=== PATIENT | female | born 1990 | race Hispanic/Latino ===

== ENCOUNTER 2017-02-12 08:50 | Emergency (ER) | payer MEDICAID, OTHER, SELFPAY ==
[2017-02-12 09:32] LABS: #Monocytes 0.4 thou/uL (0.11-0.59); #Neutrophils 6.1 thou/uL (1.40-6.50); %Basophils 0.3 % (0.0-1.0); %Eosinophils 0.6 % (0.0-10.0); %Lymphocytes 23.4 % (21.0-51.0); %Monocytes 4.4 % (0.0-10.0); Mean Platelet Volume 7.2 fL (7.4-10.4); Red Blood Cell (RBC) Count 4.45 mill/uL (4.20-5.40); White Blood Cell (WBC) Count 8.5 thou/uL (4.8-10.8)
[2017-02-12 09:37] LABS: Bilirubin Negative (Negative); Blood, Urine Negative (Negative); Glucose, Urine (Dipstick) Negative (Negative); Ketone, Urine Negative (Negative); Nitrite Negative (Negative); Protein, Urine (Dipstick) Negative (Neg-Trace)
[2017-02-12 09:38] LABS: Bacteria/HPF 2+ HPF (None Seen); Hyaline Casts/LPF 0-3 HYALINE CAST LPF (0-3 Hyaline)
[2017-02-12 09:50] LABS: ALT (SGPT) 23 U/L (8-55); AST (SGOT) 16 U/L (5-34); Alkaline Phosphatase 60 U/L (40-150); Anion Gap 11 mmol/L (10-20); BUN (Urea Nitrogen) 6 mg/dL (7.0-18.7); Calc. Creatinine Clearance 0 mL/min (70-130); Calcium 8.9 mg/dL (7.8-10.44); Carbon Dioxide 24 mmol/L (22-29); Chloride 105 mmol/L (98-107); Estimated GFR-MDRD Greater than 90; Globulin 2.7 g/dL (2.4-3.5); Protein, Total 6.5 g/dL (6.0-8.3)
--- NOTE | 2017-02-12 11:36 | ULT ---
PELVIC ULTRASOUND: Date: 02/12/17 HISTORY: Pelvic pain. Patient gives a history of . FINDINGS: A gestational sac is identified. A yolk sac is identified. No evidence of pole. Gestational sa c measurements would indicate a 5 week/6 day gestational age. There is a right ovarian cyst measuring up to 2.0 cm. No other abnormality identified. Both ovaries are identified and appear unremarkable. Color Doppler and spectral analysis shows blood flow to both ovaries. IMPRESSION: Evidence of an intrauterine gestation. A pole is not identified at this time. Gestational sac measurements indicate a 5 week/6 day gestational age. Recommend continued follow-up. POS: JEREMIE
== END 2017-02-12 11:25 | disposition home or self-care (01) ==
LOC: ERS 08:50
DX: O23.41 Unspecified infection of urinary tract in pregnancy, first trimester (principal); O99.341 Other mental disorders complicating pregnancy, first trimester; F41.9 Anxiety disorder, unspecified; Z3A.01 Less than 8 weeks gestation of pregnancy
CPT/HCPCS: 36415; 76856; 80053; 81003; 81015; 84702; 85025; 87086

== ENCOUNTER 2017-03-23 13:05 | Emergency (ER) | payer MEDICAID, OTHER ==
[2017-03-23] MEDS ORDERED: diphenhydrAMINE 50 MG/ML VIAL ONE (13:38)
[2017-03-23] MEDS ORDERED: Metoclopramide HCl 10 MG/2 ML VIAL ONE (13:38)
[2017-03-23] MEDS ORDERED: Famotidine/PF 20 mg/2ml Vial ONE (13:38)
[2017-03-23 14:24] LABS: Bilirubin Small (Negative); Blood, Urine Small (Negative); Glucose, Urine (Dipstick) Negative (Negative); Ketone, Urine Trace mg/dL (Negative); Nitrite Negative (Negative); Protein, Urine (Dipstick) Trace mg/dL (Neg-Trace)
[2017-03-23 14:44] LABS: Bacteria/HPF 3+ HPF (None Seen); Hyaline Casts/LPF 0-3 HYALINE CAST LPF (0-3 Hyaline); Renal Epithelial 0-3 HPF (0-3)
== END 2017-03-23 16:04 | disposition home or self-care (01) ==
LOC: SCSER 13:05
DX: O21.0 Mild hyperemesis gravidarum (principal); O99.341 Other mental disorders complicating pregnancy, first trimester; F41.9 Anxiety disorder, unspecified; Z79.899 Other long term (current) drug therapy; Z3A.12 12 weeks gestation of pregnancy
CPT/HCPCS: 81003; 81015; 87086; 96361; 96365; 96375; J1200; J2765; S0028

== ENCOUNTER 2017-07-22 10:12 | Day surgery (SDC) | payer MEDICAID, OTHER ==
[2017-07-22 08:41] LABS: Bilirubin Small (Negative); Blood, Urine Large (Negative); Clarity Clear (Clear); Glucose, Urine (Dipstick) Negative (Negative); Leukocyte Negative (Negative); Nitrite Negative (Negative); Protein, Urine (Dipstick) 100 mg/dL (Neg-Trace); pH, Urine 6.5 (5.0-9.0)
[2017-07-22 08:42] LABS: Specific Gravity, Urine Greater than 1.035 (1.002-1.036)
[2017-07-22 08:50] LABS: #Basophils 0.1 thou/uL (0.0-0.2); #Eosinphils 0.1 thou/uL (0.0-0.7); #Lymphocytes 2.1 thou/uL (1.20-3.40); #Monocytes 0.6 thou/uL (0.11-0.59); #Neutrophils 7.5 thou/uL (1.40-6.50); %Basophils 0.5 % (0.0-1.0); %Eosinophils 0.6 % (0.0-10.0); %Lymphocytes 20.7 % (21.0-51.0); %Monocytes 5.4 % (0.0-10.0); %Neutrophils 72.8 % (42.0-75.0); Hemoglobin 11.8 g/dL (12.0-16.0); Mean Corpuscular HGB CONC 33.2 g/dL (32.0-36.0); Mean Corpuscular Hemoglobin 29.1 pg (27.0-31.0); Mean Corpuscular Volume 87.6 fl (81.0-99.0); Mean Platelet Volume 8.6 fL (7.4-10.4); Platelet Count 215 thou/uL (130-400); RBC Distribution Width 12.4 % (11.5-14.5); Red Blood Cell (RBC) Count 4.05 mill/uL (4.20-5.40); White Blood Cell (WBC) Count 10.2 thou/uL (4.8-10.8)
[2017-07-22 08:51] LABS: Bacteria/HPF None Seen HPF (None Seen); RBC/HPF GREATER THAN 50-TNTC HPF (0-3); Squamous Epithelial 0-3 HPF (0-3)
[2017-07-22 08:56] LABS: Anion Gap 14 mmol/L (10-20); BUN (Urea Nitrogen) 8 mg/dL (7.0-18.7); Calc. Creatinine Clearance 0 mL/min (70-130); Calcium 8.5 mg/dL (7.8-10.44); Carbon Dioxide 19 mmol/L (22-29); Chloride 109 mmol/L (98-107); Estimated GFR-MDRD Greater than 90; Glucose 99 mg/dL (70-105); Potassium 3.7 mmol/L (3.5-5.1); Sodium 138 mmol/L (136-145)
[2017-07-22] MEDS: Lactated Ringer's 1,000 ML IV SCH ×2 (10:00→11:00)
[~2017-07-22 10:12] MED LIST: Morphine 10 MG/ML VIAL ONE
[2017-07-22] MEDS ORDERED: Tamsulosin HCl 0.4 MG CAP PO SCH (10:30)
--- NOTE | 2017-07-22 10:31 | PDOC.EVN ---
Event Note - Event Note Event Note: 07/22/17 @ 1025: H&P Dictated...This is SUPPLEMENTAL TO HAVE SOMETHING IN EMR QUICKLY. In brief, 28 weeks 2 days with last delivery being a CS (we obtained the record from [facility] here and it was 26 weeks for preeclampsia...low transverse CS), now presenting with left flank pain and radiation to pelvis. Blood in urine from [facility] ED. NO evidence PTL or abruption at this time. No LOF, no VB, no CTX, good FM. Afebrile and normotensive. Interventions: Sono for ureteral jets being ordered along with renal sono, and sono for EGA. Flomax and Moso4 ordered. IVF hydrate. Details given to patient and her mother at bedside.
--- NOTE | 2017-07-22 10:45 | HP ---
TIME OF EVALUATION: 10 a.m. to 10:12 a.m. LOCATION: Labor and Delivery, Room 6 REASON FOR EVALUATION: A 28-week at gestational age of 28 weeks and 2 days with lower back pain and lower pelvic pain. PRINCIPAL BIZTALK ADMINISTRATOR PROVIDER: Dr. Ball The patient was sent here from [facility] ER for 28-week with pelvic pain. HISTORY OF PRESENT ILLNESS: In brief, this is a 26-year-old G3, P2 at 28 weeks and 2 days with a past history of a section x1 for preeclampsia. She is at 28 weeks and 2 days. She was first seen at [facility] ER for acute onset of left lower quadrant and left lower back pelvic pain. She denies leakage of fluid, no vaginal bleeding, no headache or visual changes. She denies recent trauma. She denies nausea, vomiting or gastrointestinal symptoms. She denies dysuria. She was first seen in [facility] ER where a cath UA revealed blood in the urine and a comprehensive metabolic profile was also sent which showed no overt abnormalities. She was sent here for further evaluation. REVIEW OF SYSTEMS: A complete 12 point review of systems was performed as per HPI and was significant as per the HPI. PAST MEDICAL HISTORY: Otherwise negative. MEDICATIONS: Tylenol p.r.n., and vitamins, but she has not taken vitamins recently. ALLERGIES: None. PAST MEDICAL HISTORY: Noncontributory. PAST SURGICAL HISTORY: x1. OB HISTORY: She is a G3, P2. PHYSICAL EXAMINATION: VITAL SIGNS: Temperature is 98.1, blood pressure 130/84, pulse is 79. O2 saturation on room air is 98%. GENERAL: The patient is uncomfortable, sitting up in chair, touching in her left flank area. LUNGS: Respirations are regular and not labored. ABDOMEN: Soft. Nontender with no palpable contractions. There is no costovertebral angle tenderness. CERVIX: Cervix was closed at the [facility] ER, but we are rechecking that today by nurse evaluation at bedside. monitor shows heart tones in the 140s to 150s with moderate variability. Tocodynamometer shows no contractions. INTERVENTIONS ORDERED: I have ordered an OB complete ultrasound for gestational age as well as a left renal ultrasound for possible left renal colic. I have also ordered Flomax 0.4 mg p.o. for empiric treatment of renal colic and have also ordered morphine sulfate for ureteral relaxation and pain control. ASSESSMENT: This is a 26-year-old G3, P2, female, at 28 weeks and 2 days with left flank pain radiating to the front suspicious for renal colic. Hematuria also is supportive of this working diagnosis. PLAN: 1. OB ultrasound for gestational age confirmation. 2. Left renal ultrasound to rule out pathological evidence of obstruction. 3. Flomax p.r.n. 4. Pain control p.r.n. 5. monitors. 6. No evidence of acute labor or pyelonephritis at this time. 7. IV hydration. 8. Plan discussed with the patient and her mother who is at bedside. 9. No acute concerns at this time. MTDD
--- NOTE | 2017-07-22 10:57 | PDOC.EVN ---
Event Note - Event Note Event Note: SONO: I was present at bedside while Sola performed the bladder sono. Jets noted x 2. Patient now feels MUCH better, and clinically resting now...I suspect she may have passed the stome already at her last void just now. Continue IVFs for now. Info given to her and mother.
[2017-07-22 11:00] VITALS: BMI 32.9
--- NOTE | 2017-07-22 12:31 | PDOC.EVN ---
Event Note - Event Note Event Note: @1230: Sxs have passed. Stable for DC home after this current IV bag.Dr Ball notified and given report by me.
--- NOTE | 2017-07-22 14:02 | ULT ---
RENAL ULTRASOUND: 07/22/2017 HISTORY: A 26-year-old female with left-sided flank pain. COMPARISON: None. TECHNIQUE: Multiplanar hardy-scale sonographic imaging of the kidneys and urinary bladder obtained. FINDINGS: The right kidney measures 12 x 5.7 x 5.4 cm, and the left kidney measures 12.9 x 8.2 x 6.6 cm. Imagi ng of the urinary bladder demonstrates bilateral ureteral jets. No hydronephrosis, stone, or mass le william seen on the right. There is mild left-sided hydronephrosis. No left renal stone or mass lesion seen. IMPRESSION: 1. Mild left-sided hydronephrosis. 2. Bilateral ureteral jets noted on imaging of the urinary bladder. POS: SAM
--- NOTE | 2017-07-22 14:32 | ULT ---
OBSTETRICAL ULTRASOUND: Date: 07/22/17 INDICATION: Evaluate estimated gestational age and estimated weight. COMPARISON: None. FINDINGS: There is a single live intrauterine gestation in vertex presentation. The placenta is posterior in lo cation without evidence of previa. Cardiac activity is noted at 131 beats/minute. ELI measures 14.5 c m. Visualized heart and stomach appear within normal limits. The remaining anatomy is slightly patrick ited due to the advanced gestational age. Biparietal diameter measures 7.57 cm, giving an estimated gestational age of 30 weeks and 3 days (86t h percentile). Head circumference measures 27.68 cm, giving an estimated gestational age of 30 weeks and 2 days (65t h percentile). Abdominal circumference measures 24.16 cm, giving an estimated gestational age of 28 weeks and 3 bradley (34th percentile). Femoral length measures 5.28 cm, giving an estimated gestational age of 28 weeks and 1 day (18th perc entile). The estimated weight is 1,256 gm (33rd percentile). The average gestational age by ultrasound is 29 weeks and 3 days, estimated due date is 10/04/17. The estimated clinical age is 28 weeks and 5 days, estimated due date of 10/09/17. IMPRESSION: Single live intrauterine gestation with size and dates as above. POS: [facility]
== END 2017-07-22 13:15 | disposition home or self-care (01) ==
LOC: L&D/OP 10:12
PROVIDERS: ATTEND Student in an Organized Health Care Education/Training Program
DX: O99.89 Other specified diseases and conditions complicating pregnancy, childbirth and the puerperium (principal); R10.2 Pelvic and perineal pain; M54.5 Low back pain; Z79.899 Other long term (current) drug therapy; Z3A.28 28 weeks gestation of pregnancy; Z98.891 History of uterine scar from previous surgery; Z87.59 Personal history of other complications of pregnancy, childbirth and the puerperium
CPT/HCPCS: 51701; 76770; 76805; 80048; 81003; 81015; 85025; 96360; 96361; 96374; 96375; 99283; A4353; J2270

== ENCOUNTER 2017-09-24 18:23 | Day surgery (SDC) | payer OTHER ==
[2017-09-24 19:06] VITALS: BMI 35.5
[2017-09-24 20:13] LABS: Bilirubin Negative (Negative); Blood, Urine Negative (Negative); Clarity CLEAR (Clear); Glucose, Urine (Dipstick) Negative (Negative); Leukocyte Small (Negative); Nitrite Negative (Negative); Protein, Urine (Dipstick) Negative (Neg-Trace)
[2017-09-24 20:16] LABS: Bacteria/HPF Rare-Few HPF (None Seen); Hyaline Casts/LPF 0-3 HYALINE CAST LPF (0-3 Hyaline); Pathc Cast-AUWi Flag 0.14 (0-2.49); RBC/HPF 0-3 HPF (0-3); Squamous Epithelial 0-3 HPF (0-3)
--- NOTE | 2017-09-24 22:23 | PRG ---
DATE OF SERVICE: 09/24/2017 OB ER ENCOUNTER PRIMARY OBSTETRIC: Catrina Ball MD CHIEF COMPLAINT: Dysuria. HISTORY OF PRESENT ILLNESS: The patient is a 27-year-old, G4, P2 female with an intrauterine pregnan cy at 37 weeks and 3 days, who is presenting to Labor and Delivery with dysuria and is concerned that she may have a urinary tract infection. The patient reports she just feels a fullness in her bladde r and feels like there is something there that she cannot get rid of. She denies fever. She denies labor. She has vaginal bleeding, leakage of fluid. She denies cough, chest pain, shortness of breat h, nausea, vomiting. She denies any new rashes. PAST MEDICAL HISTORY: Anxiety, history of bipolar disorder, genital warts, and kidney stones. PAST SURGICAL HISTORY: She has had a and her gallbladder removed and a D&C. OBSTETRIC HISTORY: She has had preeclampsia at a previous resulting in a at 29 w eeks. ALLERGIES: No known drug allergies. MEDICATIONS: Gabapentin, recently had a course of Flagyl, and vitamins. OBSTETRIC LABORATORIES: Blood type is O positive. Antibody screen is negative. She is rubella immu ne. Hepatitis B surface antigen is nonreactive. RPR is nonreactive. HIV is nonreactive. Third tri mester HIV and RPR are nonreactive. One-hour Glucola was 160 with a normal 3-hour test. Group B str ep is negative. REVIEW OF SYSTEMS: Per HPI. PHYSICAL EXAMINATION: VITAL SIGNS: Blood pressures have ranged from 127/69 to 146/79, heart rate in the 70s, respiratory r ate 18, temperature 98.7. GENERAL: She appears to be in no acute distress. She is alert, oriented, cooperative, and pleasant to interact with. HEENT: Normocephalic, atraumatic. LUNGS: Clear to auscultation bilaterally. HEART: Regular rate and rhythm. ABDOMEN: Soft, nontender to palpation. PELVIC: Per nursing staff, cervical exam was performed and is 115, -1 station. EXTREMITIES: Nontender with minimal edema. GENITOURINARY: Has been deferred. heart tracing performed and noted to be in the 120s with moderate long-term variability, positi ve accelerations, no decelerations. She has some irritability on tocometer. UA is negative for prot ein. She has a pH of 7. No ketones, no nitrites. She has leukocyte esterase, small; white blood ce lls 7-10; rare-to-few bacteria; no squamous cells. ASSESSMENT AND PLAN: The patient is a 27-year-old, G4, P2 female with an intrauterine at 3 7 weeks and 3 days, who has symptoms consistent with urinary tract infection and some findings on UA that may support that. She has no evidence of labor or pyelonephritis. She continues to have some m ild range blood pressures, which Dr. Ball has been aware of. The patient has currently been on as pirin for preeclampsia history. Cervix is unfavorable. The patient is asymptomatic. The patient verdugo s an appointment in [address] Ball, at which time, can follow up with continued evaluation. I have discussed the patient with Dr. Ball, who agrees with this plan. Fetus has a category 1 tr acing.
== END 2017-09-24 21:40 | disposition home or self-care (01) ==
LOC: L&D/OP 18:23
PROVIDERS: ATTEND Student in an Organized Health Care Education/Training Program
DX: O99.89 Other specified diseases and conditions complicating pregnancy, childbirth and the puerperium (principal); R30.0 Dysuria; O99.343 Other mental disorders complicating pregnancy, third trimester; F41.9 Anxiety disorder, unspecified; F31.9 Bipolar disorder, unspecified; Z79.82 Long term (current) use of aspirin; Z79.899 Other long term (current) drug therapy; Z3A.37 37 weeks gestation of pregnancy
CPT/HCPCS: 81001; 99283

== ENCOUNTER 2017-09-26 10:11 | Day surgery (SDC) | payer OTHER ==
[2017-09-26 11:28] VITALS: BP 123/72; TEMP 98.9
[2017-09-26 11:30] VITALS: BMI 35.2
[2017-09-26 11:40] LABS: #Lymphocytes 1.7 thou/uL (1.20-3.40); #Monocytes 0.4 thou/uL (0.11-0.59); #Neutrophils 5.7 thou/uL (1.40-6.50); %Basophils 0.6 % (0.0-1.0); %Eosinophils 0.5 % (0.0-10.0); %Lymphocytes 21.3 % (21.0-51.0); %Monocytes 4.4 % (0.0-10.0); %Neutrophils 73.2 % (42.0-75.0); Mean Corpuscular HGB CONC 33.9 g/dL (32.0-36.0); Mean Corpuscular Hemoglobin 29.5 pg (27.0-31.0); Mean Corpuscular Volume 86.9 fl (81.0-99.0); Mean Platelet Volume 8.4 fL (7.4-10.4); Platelet Count 201 thou/uL (130-400); RBC Distribution Width 12.9 % (11.5-14.5); Red Blood Cell (RBC) Count 3.72 mill/uL (4.20-5.40); White Blood Cell (WBC) Count 7.8 thou/uL (4.8-10.8)
[2017-09-26 11:49] LABS: Creatinine, Urine 217.91 mg/dL (47-110)
[2017-09-26 11:59] LABS: ALT (SGPT) 10 U/L (8-55); AST (SGOT) 14 U/L (5-34); Albumin 3.2 g/dL (3.5-5.0); Alkaline Phosphatase 141 U/L (40-150); Anion Gap 12 mmol/L (10-20); BUN (Urea Nitrogen) 9 mg/dL (7.0-18.7); Bilirubin, Total 0.7 mg/dL (0.2-1.2); Calc. Creatinine Clearance 205 mL/min (70-130); Calcium 8.5 mg/dL (7.8-10.44); Carbon Dioxide 20 mmol/L (22-29); Chloride 109 mmol/L (98-107); Estimated GFR-MDRD Greater than 90; Glucose 76 mg/dL (70-105); Potassium 4.1 mmol/L (3.5-5.1); Protein, Total 6.2 g/dL (6.0-8.3); Sodium 137 mmol/L (136-145)
--- NOTE | 2017-09-26 13:08 | PRG ---
DATE OF SERVICE: 09/26/2017 CHIEF COMPLAINT: Elevated blood pressures. HISTORY OF PRESENT ILLNESS: This is a 27-year-old G4, P1-1-1-2 at 37 weeks and 5 days by LMP with a history of preeclampsia at 28 weeks in a previous , who presented to clinic today for routin e OB visit with an elevated blood pressure of 130/90. The patient has been monitoring her blood pres sures at home and reports that they have been mildly elevated for the last week in the 140s. She did have one reading that got up to 180, but returned to mild range quickly. She reports an intermitten t headache and some slight lower extremity swelling. She denies any contractions, has good mov ement. OB HISTORY: Term vaginal delivery x1, at 28 weeks for preeclampsia and a spontaneous abort ion x1. GYNECOLOGIC HISTORY: No abnormal Paps, no STDs. PAST MEDICAL HISTORY: Denies. PAST SURGICAL HISTORY: and cholecystectomy. SOCIAL HISTORY: Negative x3. FAMILY HISTORY: Noncontributory. MEDICATIONS: vitamins and baby aspirin daily. ALLERGIES: No known drug allergies. PHYSICAL EXAMINATION: VITAL SIGNS: Blood pressures are all normal with the exception of one that was 147/80. The rest of them are within normal limits. She denies current headache. Pulse is normal in the 90s, respiration s 18, pulse ox is within normal limits. GENERAL: No acute distress. CARDIOVASCULAR: Regular rate and rhythm. LUNGS: Clear to auscultation bilaterally. ABDOMEN: Soft, nontender, gravid. Fundal height is 36. FHTs are category 1 with reactivity. TOCO shows occasional contractions every 5-10 minutes. LABORATORY DATA: CBC and comprehensive metabolic panel are completely within normal limits. The pro tein creatinine ratio 0.1, which is negative. ASSESSMENT AND PLAN: A 27-year-old G4, P2 at 37 weeks and 5 days with elevated blood pressures. She has ruled out for preeclampsia and currently her blood pressures are within normal limits. We will discharge the patient with strict PIH warnings and continue blood pressure monitoring as an outpatien t and follow up with me in clinic on Saturday. FHTs are reassuring.
== END 2017-09-26 12:44 | disposition home or self-care (01) ==
LOC: L&D/OP 10:11
PROVIDERS: ATTEND Student in an Organized Health Care Education/Training Program
DX: O99.89 Other specified diseases and conditions complicating pregnancy, childbirth and the puerperium (principal); R03.0 Elevated blood-pressure reading, without diagnosis of hypertension; Z3A.37 37 weeks gestation of pregnancy; Z98.890 Other specified postprocedural states
CPT/HCPCS: 36415; 80053; 82570; 84156; 85025; 99284

== ENCOUNTER 2017-10-06 07:03 | Day surgery (SDC) | payer OTHER ==
[2017-10-06 07:38] VITALS: BP 134/85; TEMP 98.8
[2017-10-06 07:40] VITALS: BMI 39.9
--- NOTE | 2017-10-06 08:03 | PDOC.LDHP ---
Labor and Delivery H&P HPI: Please see handwritten H&P in chart In brief: 27 yo multip with prior CS x 1 in past for preeclampsia, now 39 weeks, here for CTX. Exam was 2cm. Will recheck in 1-2 hours Monitors: Cat1 Infreq contractions on toco Desires TOLAC Patient of Dr Ball Has Induction Thrusday if no labor. Allergies/Adverse Reactions: Allergies Allergy/AdvReac Type Severity Reaction Status Date / Time No Known Allergies Allergy Verified 09/24/17 19:03
--- NOTE | 2017-10-06 09:32 | PDOC.EVN ---
Event Note - Event Note Event Note: Patient exam unchanged after 2 hours. D/c home with precautions.
== END 2017-10-06 09:35 | disposition home or self-care (01) ==
LOC: L&D/OP 07:03
PROVIDERS: ATTEND Student in an Organized Health Care Education/Training Program
DX: O47.1 False labor at or after 37 completed weeks of gestation (principal); Z3A.39 39 weeks gestation of pregnancy
CPT/HCPCS: 99283

== ENCOUNTER 2017-10-10 07:30 | Inpatient (IN) | payer OTHER ==
[2017-10-10] MEDS ORDERED: HYDROcodone/Acetaminophen 5/325 mg Tablet PO PRN (21:08)
[2017-10-10] MEDS ORDERED: Misoprostol 200 MCG TAB PR PRN (21:08)
[2017-10-10] MEDS ORDERED: Zolpidem Tartrate 5 MG TAB PO PRN (21:08)
[2017-10-10] MEDS ORDERED: Ondansetron HCl/PF 4 MG/2 ML Vial IVP PRN (21:08)
[2017-10-10] MEDS ORDERED: Butorphanol Tartrate 1 MG/ML VIAL SLOW IVP PRN (21:08)
[2017-10-10] MEDS ORDERED: NS / Oxytocin 40 units/1000ml 1,000 ML IV PRN (21:08)
[2017-10-10] MEDS ORDERED: Methylergonovine 0.2 MG/ML VIAL IM PRN (21:08)
[2017-10-10] MEDS ORDERED: Ibuprofen 800 MG TAB PO PRN (21:08)
[2017-10-10] MEDS ORDERED: Lidocaine 1% (PF) 30 ML VIAL SC PRN (21:08)
[2017-10-10] MEDS ORDERED: Promethazine HCl 25 MG/ML VIAL IM PRN (21:08)
[2017-10-10] MEDS ORDERED: Carboprost 250 MCG/ML AMP IM PRN (21:08)
[2017-10-10] MEDS ORDERED: Acetaminophen 500 MG TAB PO PRN (21:08)
[2017-10-10] MEDS ORDERED: NS w/ Oxytocin 10 units 500 ML IV SCH (21:15)
[2017-10-10] MEDS: Lactated Ringer's 1,000 ML IV SCH (22:00)
[2017-10-10 22:11] VITALS: BMI 37.0
[2017-10-10 22:41] LABS: Hemoglobin 10.8 g/dL (12.0-16.0); Mean Corpuscular HGB CONC 34.6 g/dL (32.0-36.0); Mean Corpuscular Hemoglobin 29.4 pg (27.0-31.0); Mean Corpuscular Volume 84.9 fl (81.0-99.0); Mean Platelet Volume 8.4 fL (7.4-10.4); Platelet Count 194 thou/uL (130-400); RBC Distribution Width 13.6 % (11.5-14.5); Red Blood Cell (RBC) Count 3.69 mill/uL (4.20-5.40); White Blood Cell (WBC) Count 8.9 thou/uL (4.8-10.8)
[2017-10-10 23:16] LABS: Syphilis Antibody Nonreactive (Nonreactive); Syphilis Antibody Index 0.06 S/CO (<1.00 Non-Reactive)
[2017-10-10 23:20] LABS: ALT (SGPT) 10 U/L (8-55); AST (SGOT) 13 U/L (5-34); Albumin 3.2 g/dL (3.5-5.0); Alkaline Phosphatase 168 U/L (40-150); Anion Gap 13 mmol/L (10-20); BUN (Urea Nitrogen) 11 mg/dL (7.0-18.7); Bilirubin, Total 0.6 mg/dL (0.2-1.2); Calc. Creatinine Clearance 202 mL/min (70-130); Calcium 8.7 mg/dL (7.8-10.44); Carbon Dioxide 21 mmol/L (22-29); Chloride 106 mmol/L (98-107); Estimated GFR-MDRD Greater than 90; Globulin 2.6 g/dL (2.4-3.5); Glucose 94 mg/dL (70-105); Protein, Total 5.8 g/dL (6.0-8.3); Sodium 136 mmol/L (136-145)
[2017-10-11 00:09] LABS: HBSAg Index 0.19 S/CO (0-0.99); Hep B Surf Ag Non-Reactive S/CO (NonReactive)
[2017-10-11] MEDS ORDERED: DISCONTINUE ALL PREVIOUS NARCOTICS FS SCH (04:45)
[2017-10-11] MEDS: Lactated Ringer's 1,000 ML IV SCH ×3 (04:55→15:46)
[2017-10-11] MEDS ORDERED: Lidocaine 2% 10 ML INJ ONE (04:55)
[2017-10-11] MEDS: Bupivacaine 0.75% 13.4 ML, fentaNYL Citrate/PF 400 MCG in Sodium Chloride 0.9% 78.6 ML EPIDURAL SCH ×2 (05:13→13:08)
[2017-10-11] MEDS ORDERED: Acetaminophen 325 MG TAB PO PRN (05:32)
[2017-10-11] MEDS ORDERED: Naloxone HCl 0.4 mg/ml Vial IVP PRN ×2 (05:32)
[2017-10-11] MEDS ORDERED: Eucerin (Mineral Oil/Petrolatum,White) 30 gm Jar TOP PRN (05:32)
[2017-10-11] MEDS ORDERED: diphenhydrAMINE 50 MG/ML VIAL IVP PRN (05:32)
[2017-10-11] MEDS ORDERED: ePHEDrine/0.9% NaCl/PF SYRINGE 50 mg/10 ml SLOW IVP PRN (05:32)
[2017-10-11] MEDS ORDERED: Promethazine HCl 25 MG/ML VIAL IM PRN (05:32)
[2017-10-11] MEDS ORDERED: Lactated Ringer's 500 ML IV PRN (05:32)
[2017-10-11] MEDS ORDERED: Ondansetron HCl/PF 4 MG/2 ML Vial IVP PRN ×2 (05:32→19:54)
[2017-10-11] MEDS ORDERED: Communication Order-Pharmacy FS SCH (05:45)
[2017-10-11] MEDS ORDERED: Fentanyl 4mcg/Marcaine 0.1% Cassette 100 ML EPIDURAL SCH (05:45)
[2017-10-11] MEDS: NS w/ Oxytocin 10 units 500 ML IV SCH ×2 (07:30→07:32)
--- NOTE | 2017-10-11 13:45 | PDOC.LDHP ---
Labor and Delivery H&P Chief complaint: scheduled induction HPI: 27yo at 39w6d by LMP here for TOLAC induction. Had cook balloon overnight, 5cm on DC at 0700 and started on pitocin 1x1. Current gestational age (weeks): 39 Due date: 10/12/17 Dating criteria: last menstrual period Grav: 4 Para: 2 OB History Details: hx LTCS at 29w due to severe pree Current complications: none Abnormal US findings: No Past Medical History: anxiety, bipolar Current medications: pre- vitamins, other (asa 81mg) Previous surgical history: low tranverse CS, cholecystectomy Allergies/Adverse Reactions: Allergies Allergy/AdvReac Type Severity Reaction Status Date / Time No Known Allergies Allergy Verified 10/10/17 21:54 Social history: none - Physical Exam Vital signs reviewed and normal: yes General: NAD Heart: RRR Lungs: CTAB Abdomen: gravid Extremeties: no edema FHT: category 1 [place] contractions every: 4min - Vaginal Exam cm dilated: 6 Effacement: 75% Station: -2 (arom clear, at 0830) - OB Labs Blood type: O RH: positive Antibody Screen: negative HIV: negative RPR: negative HEPSAg: negative 1 hour GCT: negative GBS: negative Rubella: immune - Assessment L&D Assessment: medically indicated induction - Plan Plan: admit to L&D, labor augmentation if indicated, informed consent obtained, anesthesia consult for pain management
--- NOTE | 2017-10-11 13:48 | PDOC.LDPN ---
Labor & Delivery Progress Note - Subjective Subjective: other (upper abd pain, right sided pain) - Objective Vital signs reviewed and normal: yes General: NAD Uterine fundus: non tender Dilation: 7 Effacement: 75% Station: -2 FHT: category 2, variable decelerations (mild-mod variables with ctx) IUPC placed: yes FSE placed: yes Plan: resuscitative measures -: Sono performed, wnl, no e/o uterine scar dehiscence or rupture, abd nontender, FHT with good BTBV. Anesthesia to bolus, internals placed and will amnioinfuse prn. Cont pitocin.
--- NOTE | 2017-10-11 17:08 | PDOC.OPDEL ---
OB Operative/Delivery Note Delivery Dr/Surgeon: Quinn Assist: n/a Pre-Delivery Diagnosis: elective induction (/TOLAC) Procedure/Post Delivery Dx: vaginal delivery after CS Weeks gestation: 39 Anesthesia: epidural - Findings A Sex: male - 1 min: 8 - 5 min: 9 - Additional Findings/Plan Placenta delivered: spontaneous Repaired Obstetrical Laceration: 1st degree (perineal and left periurethral reapprox with 3-0 vicryl for hemostasis) Estimated blood loss: 300 Compilations/Other Findings: NC x 1 reduced at perineum Post delivery plan: routine recovery
[2017-10-11] MEDS ORDERED: Lanolin Ointment 7 GM TUBE TOP PRN (19:54)
[2017-10-11] MEDS ORDERED: NS / Oxytocin 40 units/1000ml 1,000 ML IV SCH (19:54)
[2017-10-11] MEDS ORDERED: Bisacodyl 10 MG SUPP PR PRN (19:54)
[2017-10-11] MEDS ORDERED: Milk Of Magnesia 30 ML UDCUP PO PRN (19:54)
[2017-10-11] MEDS ORDERED: Benzocaine/Menthol 20-0.5% 60 ML CAN TOP PRN (19:54)
[2017-10-11] MEDS ORDERED: Preparation H Ointment 28 GM TUBE PR PRN (19:54)
[2017-10-11] MEDS ORDERED: diphenhydrAMINE 25 MG CAP PO PRN (19:54)
[2017-10-11] MEDS ORDERED: HYDROcodone/Acetaminophen 5/325 mg Tablet PO PRN ×2 (19:54)
[2017-10-11] MEDS: Docusate Calcium (SURFAK) 240 MG CAP PO SCH (20:09)
[2017-10-11] MEDS: Ibuprofen 800 MG TAB PO SCH (20:09)
[2017-10-12] MEDS ORDERED: Sodium Chloride 0.9% 10 ML ONE (05:35)
[2017-10-12] MEDS: Ibuprofen 800 MG TAB PO SCH ×3 (05:39→14:54)
--- NOTE | 2017-10-12 06:50 | PDOC.PP ---
Post Progress Note Post Day #: PPD#1 Subjective: Resting, no complaints. PO intake tolerated: yes Ambulation: yes Vital Signs (12 hours) Temp Pulse Resp BP 10/11/17 23:20 98.5 F 76 16 125/72 10/11/17 19:45 98.6 F 75 18 137/71 Weight Weight 97.976 kg - Physical Examination General: NAD Respiratory: non-labored breathing Abdominal: no distention Psychiatric: normal affect Result Diagrams: 10/10/17 22:00 10/10/17 22:00 Additional Labs: Post Labs Blood Type O POSITIVE 10/10/17 22:00 Hep Bs Antigen Non-Reactive S/CO (NonReactive) 10/10/17 21:08 - Assessment/Plan Doing well s/p successful . Routine PP care.
[2017-10-12] MEDS ORDERED: Adacel (T-DAP) 0.5 ML VIAL IM ONE (09:00)
[2017-10-12] MEDS ORDERED: Prenatal Vitamin 1 TAB PO SCH (09:00)
[2017-10-12] MEDS: Docusate Calcium (SURFAK) 240 MG CAP PO SCH (14:53)
[2017-10-12] MEDS: Ferrous Sulfate 325 MG TAB PO SCH ×2 (14:53→17:20)
--- NOTE | 2017-10-12 17:36 | PDOC.PP ---
Post Progress Note Post Day #: 1.5 PO intake tolerated: yes Flatus: yes Ambulation: yes Vital Signs (12 hours) Temp Pulse Resp BP Pulse Ox 10/12/17 16:00 97.9 F 77 20 10/12/17 12:00 97.9 F 77 20 10/12/17 09:15 97.9 F 77 20 10/12/17 08:37 97.9 F 77 20 111/72 97 Weight Weight 216 lb - Physical Examination General: NAD Cardiovascular: no m/r/g, RRR Respiratory: clear to auscultation bilaterally Abdominal: + bowel sounds Extremities: negative homans (B) Neurological: no gross focal deficits (doing well and desires dc today.) Result Diagrams: 10/10/17 22:00 10/10/17 22:00 Additional Labs: Post Labs Blood Type O POSITIVE 10/10/17 22:00 Hep Bs Antigen Non-Reactive S/CO (NonReactive) 10/10/17 21:08
[2017-10-12 17:51] VITALS: BP 135/67; TEMP 98.5
== END 2017-10-12 18:08 | disposition home or self-care (01) | DRG 775 ==
LOC: L&D 21:05 → 3SE 10-11 19:45
PROVIDERS: ADMIT Student in an Organized Health Care Education/Training Program; ATTEND Student in an Organized Health Care Education/Training Program
PROC: 10E0XZZ Delivery of Products of Conception, External Approach (ICD-10-PCS; principal; 2017-10-11)
PROC: 0U7C7ZZ Dilation of Cervix, Via Natural or Artificial Opening (ICD-10-PCS; 2017-10-11)
PROC: 10907ZC Drainage of Amniotic Fluid, Therapeutic from Products of Conception, Via Natural or Artificial Opening (ICD-10-PCS; 2017-10-11)
PROC: 0HQ9XZZ Repair Perineum Skin, External Approach (ICD-10-PCS; 2017-10-11)
DX: O70.0 First degree perineal laceration during delivery (principal); O69.81X0 Labor and delivery complicated by cord around neck, without compression, not applicable or unspecified; O34.211 Maternal care for low transverse scar from previous cesarean delivery; O76 Abnormality in fetal heart rate and rhythm complicating labor and delivery; O71.82 Other specified trauma to perineum and vulva; Z37.0 Single live birth; Z3A.39 39 weeks gestation of pregnancy; Z90.49 Acquired absence of other specified parts of digestive tract
CPT/HCPCS: 51702; 80053; 85027; 86780; 86850; 86900; 86901; 87340; A4216; C1726; J2001; J2405; J3010; J7050

== ENCOUNTER 2017-10-16 20:13 | Emergency (ER) | payer MEDICAID, OTHER, SELFPAY ==
[2017-10-16] MEDS ORDERED: Metoclopramide HCl 10 MG/2 ML VIAL ONE (22:12)
[2017-10-16] MEDS ORDERED: diphenhydrAMINE 50 MG/ML VIAL ONE (22:12)
[2017-10-16 22:53] LABS: #Eosinphils 0.1 thou/uL (0.0-0.7); #Monocytes 0.3 thou/uL (0.11-0.59); %Basophils 0.6 % (0.0-1.0); %Lymphocytes 31.7 % (21.0-51.0); %Neutrophils 61.7 % (42.0-75.0); Hemoglobin 9.3 g/dL (12.0-16.0); Mean Corpuscular HGB CONC 33.1 g/dL (32.0-36.0); Mean Corpuscular Hemoglobin 28.8 pg (27.0-31.0); Mean Corpuscular Volume 86.9 fL (78.0-98.0); Mean Platelet Volume 7.3 fL (7.4-10.4); Platelet Count 236 thou/uL (130-400); RBC Distribution Width 14.2 % (11.5-14.5); Red Blood Cell (RBC) Count 3.22 mill/uL (4.20-5.40); White Blood Cell (WBC) Count 6.4 thou/uL (4.8-10.8)
[2017-10-16 23:12] LABS: ALT (SGPT) 37 U/L (8-55); AST (SGOT) 25 U/L (5-34); Albumin 3.2 g/dL (3.5-5.0); Alkaline Phosphatase 103 U/L (40-150); Anion Gap 12 mmol/L (10-20); BUN (Urea Nitrogen) 13 mg/dL (7.0-18.7); Bilirubin, Total 0.6 mg/dL (0.2-1.2); Calc. Creatinine Clearance 0 mL/min (70-130); Calcium 8.5 mg/dL (7.8-10.44); Carbon Dioxide 23 mmol/L (22-29); Chloride 110 mmol/L (98-107); Estimated GFR-MDRD Greater than 90; Globulin 2.6 g/dL (2.4-3.5); Glucose 79 mg/dL (70-105); Potassium 3.5 mmol/L (3.5-5.1); Protein, Total 5.8 g/dL (6.0-8.3); Sodium 141 mmol/L (136-145)
[2017-10-16 23:54] LABS: Bilirubin Negative (Negative); Blood, Urine Large (Negative); Clarity CLEAR (Clear); Glucose, Urine (Dipstick) Negative (Negative); Leukocyte Small (Negative); Nitrite Negative (Negative); Protein, Urine (Dipstick) Negative (Neg-Trace); Specific Gravity, Urine 1.019 (1.002-1.036)
[2017-10-16 23:56] LABS: Bacteria/HPF None Seen HPF (None Seen); Hyaline Casts/LPF 0-3 HYALINE CAST LPF (0-3 Hyaline); Pathc Cast-AUWi Flag 0.29 (0-2.49); RBC/HPF 0-3 HPF (0-3); Squamous Epithelial 0-3 HPF (0-3)
== END 2017-10-17 00:20 | disposition home or self-care (01) ==
LOC: ERS 20:13
DX: O16.5 Unspecified maternal hypertension, complicating the puerperium (principal); O99.345 Other mental disorders complicating the puerperium; F41.9 Anxiety disorder, unspecified; O99.285 Endocrine, nutritional and metabolic diseases complicating the puerperium; E78.5 Hyperlipidemia, unspecified
CPT/HCPCS: 36415; 80053; 81003; 81015; 85025; 87086; 96365; 96366; 96375; J1200; J2765